=== PATIENT | male | born 1940 | race Caucasian/White ===

== ENCOUNTER 2017-06-29 15:45 | Inpatient (IN) ==
[2017-06-29] MEDS ORDERED: Nitroglycerin 1 INCH/GM PACKET TP ONE (15:55)
[2017-06-29] MEDS ORDERED: Aspirin 81 MG TAB.CHEW PO ONE (15:55)
--- NOTE | 2017-06-29 16:56 | Emergency Department Note ---
Disposition Clinical Impression: Family history of CABG, NSTEMI (non-ST elevated myocardial infarction) Chest pain Qualifiers: Chest pain type: unspecified Qualified Code(s): R07.9 - Chest pain, unspecified Afib Qualifiers: Atrial fibrillation type: paroxysmal Qualified Code(s): I48.0 - Paroxysmal atrial fibrillation Disposition: Admitted As Inpatient Condition: Serious Referrals: NONE,PCP [Primary Care Provider] - Forms: ED Satisfaction Letter Time of Disposition: 19:42 Chest Pain HPI - General Chief Complaint: ED Chest Pain Stated Complaint: CHEST PAIN Time Seen by Provider: 06/29/17 15:55 Source: patient Limitations: no limitations Vital Signs Reviewed: Yes Nursing Notes Reviewed: Yes - History of Present Illness HPI Narrative: Patient is 77-year-old male complains of chest pain that occurred this morning while patient was working on his lawn. Patient states he felt sharp has pain across her mid chest sternal. Patient has a history of 5 bypass grafts, stents in left leg and stent right shoulder. Patient went to the [facility] basic labs were drawn and patient was transferred here. Patient's states that the [facility] states that if he has CHF and is in A. fib at a recommended transfer to [facility] patient is to receive further treatment. Patient has a history of A. fib. Prior episodes of chest pain. Severity scale (1-10): 0 - Related Data Home Medications Medication Instructions Recorded Confirmed Acetaminophen [Tylenol] 500 mg PO Q6HR PRN 06/29/17 06/29/17 Albuterol Sulfate [Albuterol 2 puff IH Q6H PRN 06/29/17 06/29/17 Inhaler] Amlodipine Besylate 10 mg PO DAILY 06/29/17 06/29/17 Apixaban [Eliquis] 5 mg PO BID 06/29/17 06/29/17 Aspirin [Lo-Dose Aspirin EC] 81 mg PO DAILY 06/29/17 06/29/17 Atorvastatin [Lipitor] 40 mg PO HS 06/29/17 06/29/17 Cetirizine HCl [All Day Allergy] 10 mg PO DAILY 06/29/17 06/29/17 Cholecalciferol (D-3) [Vitamin D] 1,000 unit PO DAILY 06/29/17 06/29/17 Docusate [Colace] 100 mg PO BID PRN 06/29/17 06/29/17 Isosorbide MONOnitrate (24 HR) 30 mg PO BID 06/29/17 06/29/17 [Imdur] Lidocaine Patch [Lidoderm 5% patch] 1 each TP Q12H PRN 06/29/17 06/29/17 Melatonin [Melatin] 3 mg PO HS PRN 06/29/17 06/29/17 Methocarbamol [Robaxin] 250 mg PO QAM 06/29/17 06/29/17 Montelukast [Singulair] 10 mg PO DAILY 06/29/17 06/29/17 Multivit-Min/FA/Lycopen/Lutein 1 each PO DAILY 06/29/17 06/29/17 [Adults 50+ Multivitamin Tablet] Nitroglycerin [Nitrolingual] 1 - 2 spr SL AD PRN 06/29/17 06/29/17 Saw [place] Xtr/Zinc Picolin [Saw 2 cap PO DAILY 06/29/17 06/29/17 [place] Capsule] Sennosides [Senokot] 8.6 mg PO DAILY PRN 06/29/17 06/29/17 Sertraline [Zoloft] 100 mg PO HS 06/29/17 06/29/17 Tiotropium [Spiriva] 2 puff IH 0700 06/29/17 06/29/17 Tramadol HCl [Ultram] 25 mg PO TID PRN 06/29/17 06/29/17 Allergies Allergy/AdvReac Type Severity Reaction Status Date / Time Pneumococcal Vaccine Allergy Hives Verified 06/29/17 15:51 All systems ED: reviewed and negative except as stated. Review of Systems: As Per HPI Constitutional: Denies: fever, chills, weakness Eyes: Denies: vision change ENT ED: Denies: throat pain, congestion Cardiovascular: Reports: chest pain. Denies: palpitations Respiratory: Denies: cough, dyspnea, wheezes Gastrointestinal: Denies: abdominal pain, nausea, vomiting Genitourinary: Denies: urgency, dysuria Musculoskeletal: Denies: back pain, neck pain Integumentary: Denies: rash Neurological: Denies: headache, weakness, numbness, paresthesias Psychiatric: Denies: anxiety Endocrine: Denies: fatigue Hematological/Lymphatic: Denies: easy bleeding Chest Pain PMH - Past Medical History Medical history: Reports: other Psychiatric history: Reports: no psych history - Social History Smoking Status: Never smoker Alcohol use: Reports: none Drug use: Reports: none Physical Exam - General Limitations: no limitations General appearance: alert, in no apparent distress - Head Head exam: atraumatic, normocephalic, normal inspection - Eye Eye exam: Present: normal appearance, PERRL, EOMI - ENT ENT exam: normal exam, normal oropharynx, mucous membranes moist - Neck Neck exam: Present: normal inspection, full ROM, trachea midline - Chest Chest inspection: Present: normal inspection, symmetric chest wall rise - Respiratory Respiratory exam: Present: normal lung sounds bilaterally - Cardiovascular Cardiovascular exam: Present: regular rate, normal rhythm, normal heart sounds - Abdominal Exam Abdominal exam: Present: soft, Non-Tender. Absent: tenderness, distention, guarding, rebound, rigidity - Extremities Exam Extremities exam: Present: normal inspection, full ROM. Absent: tenderness, pedal edema - Expanded Lower Extremity Exam Hip/Pelvis exam: Present: normal inspection, full ROM - Back Exam Back exam: Present: normal inspection, full ROM. Absent: tenderness, CVA tenderness (R), CVA tenderness (L), muscle spasm - Neurological Exam Neurological exam: Present: alert, oriented X3, CN II-XII intact - Skin Skin exam: Present: warm, dry, intact, normal color Course - Reevaluation(s) Reevaluation #1: Patient seen and examined. Labs chest x-ray, CBC, BMP, troponin ordered. Patient currently not in any pain Time: 15:55 Reevaluation #2: Elevated d-dimer of 1898 high suspicious for PE. CTA chest ordered. Time: 17:44 Reevaluation #3: CTA of the chest negative for PE. Patient has elevated troponin. Patient be admitted for an STEMI, paroxysmal A. fib. Time: 18:40 - Consultations Consultation #1: Dr. Bello the hospitalist accepted patient for admission Vital Signs Temperature 97.4 F L 06/29/17 15:47 Pulse Rate 73 06/29/17 15:47 Respiratory Rate 16 06/29/17 15:47 Blood Pressure 175/94 06/29/17 15:47 O2 Sat by Pulse Oximetry 18 06/29/17 15:47 Temperature 97.4 F L 06/29/17 15:47 Pulse Rate 79 06/29/17 19:27 Respiratory Rate 18 06/29/17 19:27 Blood Pressure 156/86 06/29/17 19:27 O2 Sat by Pulse Oximetry 98 06/29/17 19:27 Oxygen Delivery Oxygen Delivery Room Air Chest Pain - MDM Narrative Medical decision making narrative: Patient was history of CABG 5 currently under assessment for pacemaker had chest pain earlier today concerning for ACS/HI, PE, aortic dissection, pneumonia. Patient's currently afebrile, has bilateral radial pulses. And chest x-ray shows no mediastinal widening. Vital signs on initial elevated blood pressure currently Patient d-dimer given positive at 1800. CT angiogram of chest was ordered. Results were negative for PE. Patient's troponin came back elevated at 0.05. Heart score 8, significantly high risk for adverse cardiac events Had discussion with patient for admission for NSTEMI, patient family accepts admission patient started on Lovenox 90 mg. Cardiac diet ordered Patient is accepted for admission by Dr. Bello the hospitalist. - Medical Records Medical records reviewed: Yes I reviewed the patient's medical records. Patient's records from the [facility] with. Labs were taken but show no abnormal labs, EKG taken in the [facility] shows A. fib with ventricular rate of 82 bpm taken at 1324 hrs. - Lab Data Lab results reviewed: Yes I reviewed the patient's lab results. Result diagrams: 06/29/17 17:21 06/29/17 17:21 Lab Results 06/29/17 06/29/17 06/29/17 Range/Units 17:21 17:21 17:21 WBC 4.5 (4.3-11.1) K/mcL RBC 4.82 (4.19-5.50) M/mcL Hgb 13.3 (12.9-16.9) g/dL Hct 41.6 (37.5-50.1) % MCV 86.3 (83.0-100.0) fL MCH 27.6 L (28.0-33.3) pg MCHC 32.0 (31.6-35.5) g/dL RDW 14.1 (11.5-14.5) % Plt Count 190 (140-400) K/mcL MPV 9.2 L (9.4-12.4) fL Immature Gran % 0.4 (0-4) % Seg Neutrophils % 70.4 % Lymphocytes % 17.3 % Monocytes % 9.4 % Eosinophils % 1.8 % Basophils % 0.7 % Neutrophils # 3.1 (1.6-8.9) K/mcL Lymphocytes # 0.8 (0.6-4.6) K/mcL Monocytes # 0.4 (0.0-1.3) K/mcL Eosinophils # 0.1 (0.0-0.6) K/mcL Basophils # 0.0 (0.0-0.2) K/mcL PT 11.8 (9.4-12.1) Seconds INR 1.1 APTT 37.2 H (26.0-36.0) Seconds D-Dimer 1898 H (0-500) ng/mLFEU Sodium 138 (136-145) mEq/L Potassium 3.9 (3.5-4.5) mEq/L Chloride 106 (98-109) mEq/L Carbon Dioxide 24 (19-29) mEq/L BUN 13 (8-26) mg/dL Creatinine 0.80 (0.72-1.25) mg/dL Est GFR ( Amer) > 60 (> 60) Est GFR (Non-Af Amer) > 60 (> 60) BUN/Creatinine Ratio 16 (6-26) Glucose 103 H (70-99) mg/dL Calculated Osmolality 286 (280-300) Calcium 9.5 (8.6-10.8) mg/dL Troponin I (0-0.03) ng/mL B-Natriuretic Peptide (0-100) pg/mL 06/29/17 06/29/17 Range/Units 17:21 17:21 WBC (4.3-11.1) K/mcL RBC (4.19-5.50) M/mcL Hgb (12.9-16.9) g/dL Hct (37.5-50.1) % MCV (83.0-100.0) fL MCH (28.0-33.3) pg MCHC (31.6-35.5) g/dL RDW (11.5-14.5) % Plt Count (140-400) K/mcL MPV (9.4-12.4) fL Immature Gran % (0-4) % Seg Neutrophils % % Lymphocytes % % Monocytes % % Eosinophils % % Basophils % % Neutrophils # (1.6-8.9) K/mcL Lymphocytes # (0.6-4.6) K/mcL Monocytes # (0.0-1.3) K/mcL Eosinophils # (0.0-0.6) K/mcL Basophils # (0.0-0.2) K/mcL PT (9.4-12.1) Seconds INR APTT (26.0-36.0) Seconds D-Dimer (0-500) ng/mLFEU Sodium (136-145) mEq/L Potassium (3.5-4.5) mEq/L Chloride (98-109) mEq/L Carbon Dioxide (19-29) mEq/L BUN (8-26) mg/dL Creatinine (0.72-1.25) mg/dL Est GFR ( Amer) (> 60) Est GFR (Non-Af Amer) (> 60) BUN/Creatinine Ratio (6-26) Glucose (70-99) mg/dL Calculated Osmolality (280-300) Calcium (8.6-10.8) mg/dL Troponin I 0.05 H* (0-0.03) ng/mL B-Natriuretic Peptide 175 H (0-100) pg/mL - Radiology Data Radiology results reviewed: Yes I reviewed the patient's radiology results. Chest X-Ray 06/29/17 15:55 IMPRESSION: Mild patchy right perihilar airspace disease. D/ / Saúl Cannon MD / Saúl Cannon MD Interpreting Provider: Saúl Cannon MD - EKG Data EKG attestation: Yes I reviewed and interpreted this EKG. EKG results narrative: EKG taken 06/29/2017 at 1557 hrs. shows A. fib at a rate of 75 bpm with no acute ST elevations in leads no widened QRS or QT prolongation. Patient has some mild ST depressions in leads 2 with T-wave inversion in aVL. Also has had some ST depression in V5 and V6. Previous EKG for comparison taken 04/12/2015 shows sinus rhythm with first-degree AV block at a rate of [address] elevations or depressions any leads, no QRS widening or QT prolongation no wellen, no Brugada Heart Score - Score History: Highly Suspicious EKG: Non Specific repolarisation Disturbance Age: Greater than 65 Risk Factors: Equal/Greater than 3 risk factor or history of atherosclerotic disease Troponin: 1-3x normal limit HEART Score Total: 8 Attestation Statement - Attestation Attestation: I examined this patient and my medical decision-making was reviewed with the Resident Physician. I agree with the documented findings, disposition and treatment plan as described except to the extent set forth below. Atrial fibrillation and possible N STEMI. No current pain. We will admit for cardiology consultation and turning of cardiac biomarkers. EKG shows atrial fibrillation at time of admission.
[2017-06-29 17:29] LABS: Basophils % 0.7 %; Eosinophils # 0.1 K/mcL (0.0-0.6); Eosinophils % 1.8 %; Hematocrit 41.6 % (37.5-50.1); Hemoglobin 13.3 g/dL (12.9-16.9); Immature Granulocytes % 0.4 % (0-4); Lymphocytes # 0.8 K/mcL (0.6-4.6); Lymphocytes % 17.3 %; Mean Corpuscular Hemoglobin 27.6 pg (28.0-33.3); Mean Corpuscular Volume 86.3 fL (83.0-100.0); Mean Platelet Volume 9.2 fL (9.4-12.4); Monocytes # 0.4 K/mcL (0.0-1.3); Monocytes % 9.4 %; Neutrophils # 3.1 K/mcL (1.6-8.9); Platelet Count 190 K/mcL (140-400); Red Blood Count 4.82 M/mcL (4.19-5.50); Red Cell Distribution Width 14.1 % (11.5-14.5); Segmented Neutrophils % 70.4 %
[2017-06-29 17:33] LABS: INR 1.1; Prothrombin Time 11.8 Seconds (9.4-12.1)
[2017-06-29 17:36] LABS: Activated Partial Thrombo Time 37.2 Seconds (26.0-36.0)
[2017-06-29 17:42] LABS: BUN/Creatinine Ratio 16 (6-26); Blood Urea Nitrogen 13 mg/dL (8-26); Calcium 9.5 mg/dL (8.6-10.8); Carbon Dioxide 24 mEq/L (19-29); Chloride 106 mEq/L (98-109); Glucose 103 mg/dL (70-99); Osmolality,Calculated 286 (280-300); Potassium 3.9 mEq/L (3.5-4.5); Sodium 138 mEq/L (136-145); eGFR For African Americans > 60 (> 60); eGFR For Non-African Americans > 60 (> 60)
[2017-06-29] MEDS ORDERED: *HR* Enoxaparin 100 MG/ML SYRINGE SQ STA (18:50)
[2017-06-29] MEDS ORDERED: *HR* HYDROcodone/Acet 5/325 mg TABLET PO ONE (19:53)
[2017-06-29] MEDS ORDERED: Ondansetron 4 MG/2 ML VIAL IVP PRN (21:36)
[2017-06-29] MEDS ORDERED: Acetaminophen 325 MG TABLET PO PRN (21:36)
[2017-06-29] MEDS ORDERED: Naloxone 0.4 MG/ML INJ IVP PRN (21:36)
[2017-06-29] MEDS ORDERED: *HR* Morphine 2 MG/ML SYRINGE IVP PRN (21:38)
[2017-06-29] MEDS ORDERED: Nitroglycerin 0.4 MG TAB.SUBL SL PRN (21:38)
[2017-06-29] MEDS ORDERED: Sennosides 8.6 MG TABLET PO PRN (21:42)
--- NOTE | 2017-06-29 21:53 | Internal Med History&Physical ---
<Dana Mitchell - Last Filed: 06/29/17 22:40> Date of Encounter: 06/29/17 Time of Encounter: 21:46 Assessment and Plan (1) Chest pain Current visit: Yes Status: Acute She has been experiencing increasing shortness of breath as well as chest pain on exertion relieved with rest. Distant history of A. fib hypertension and previous 5 vessel bypass graft. Chest x-ray CT concerning for pulmonary edema BNP was 175 troponin was 0.05. We will continue to trend troponin 2 Given Lovenox in ED hold patient's Eliquis for now 3 continue with aspirin 4 nitrates and oxygen 5 we will obtain cardiac echo 6 give dose of Lasix and continue daily 7 continue with statin-check lipids in a.m. 8 we will consult cardiology 9 continue with cardiac monitoring Qualifiers: Chest pain type: unspecified Qualified Code(s): R07.9 - Chest pain, unspecified (2) Afib Current visit: Yes Status: Acute 1 presently in atrial fibrillation with a controlled rate we will hold Eliquis for now given Lovenox- patient states he is supposed to go for pacemaker placement at [facility] Qualifiers: Atrial fibrillation type: chronic Qualified Code(s): I48.2 - Chronic atrial fibrillation (3) COPD (chronic obstructive pulmonary disease) Current visit: No Status: Chronic 1 presently appears stable no wheezing noted. We will continue with bronchodilators Singulair as well as oxygen as needed Qualifiers: COPD type: unspecified COPD Qualified Code(s): J44.9 - Chronic obstructive pulmonary disease, unspecified (4) DVT prophylaxis Current visit: Yes Status: Acute Internal Medicine - H&P: HPI Chief complaint: SOB/CP Admitted From: Emergency Dept Plans for Post Hospital Care: Home History of present illness: Mr. Villa is a 77 year old male past medical history of COPD coronary artery disease with 5 bypass graft in 1987 stent right shoulder and left leg atrial fibrillation on Eliquis. According to patient he was experiencing chest achiness the top of his chest bilaterally radiating to sternum. He described it as a achiness experiencing shortness of breath symptoms are aggravated with exertion and were relieved with rest. The pain resolved on it own however he continued to experience chest pain off and on all morning. He went to the [facility] urgent care to be evaluated. There chest x-ray showed cardiomegaly with mild pulmonary DNA and a small right pleural effusion could not to CHF. He was transferred to this facility for further workup and evaluation. Troponin on arrival is 0.05 BMP was 175 d-dimer O 1898 CTA was obtained which showed no PE. He was given aspirin and Lovenox nitroglycerin topically. He has been admitted for further workup evaluation. Present patient is not experiencing any chest pain or shortness of breath. His lung sounds are clear heart sounds are irregular with S1-S2 no murmurs clicks count was noted abdomen soft nontender no pedal edema at this time. However patient does admit to having swelling over the past 3 weeks. As well as a 6 pound weight gain over 2 weeks.. He states he is supposed to go into weeks to [facility] have a pacemaker place Denies any fevers chills nausea vomiting diarrhea abdominal pain. He is hemodynamically stable at this time I reviewed his case with Dr. Lockhart who agrees with plan. Past Med Surg Social Fam HX - Past Medical History Medical history: other Psychiatric history: no psych history - Social History Smoking Status: Never smoker Smokeless Tobacco Status: No Alcohol use: none Drug use: none - Family History Father Living Status: Cause of : [place] Mother Living Status: Hx Family Cardiac Disorders: Yes (CHF) Internal Medicine - H&P: Meds Acetaminophen [Tylenol] 500 mg PO Q6HR PRN 06/29/17 [History] Albuterol Sulfate [Albuterol Inhaler] 2 puff IH Q6H PRN 06/29/17 [History] Amlodipine Besylate 10 mg PO DAILY 06/29/17 [History] Apixaban [Eliquis] 5 mg PO BID 06/29/17 [History] Aspirin [Lo-Dose Aspirin EC] 81 mg PO DAILY 06/29/17 [History] Atorvastatin [Lipitor] 40 mg PO HS 06/29/17 [History] Cetirizine HCl [All Day Allergy] 10 mg PO DAILY 06/29/17 [History] Cholecalciferol (D-3) [Vitamin D] 1,000 unit PO DAILY 06/29/17 [History] Docusate [Colace] 100 mg PO BID PRN 06/29/17 [History] Isosorbide MONOnitrate (24 HR) [Imdur] 30 mg PO BID 06/29/17 [History] Lidocaine Patch [Lidoderm 5% patch] 1 each TP Q12H PRN 06/29/17 [History] Melatonin [Melatin] 3 mg PO HS PRN 06/29/17 [History] Methocarbamol [Robaxin] 250 mg PO QAM 06/29/17 [History] Montelukast [Singulair] 10 mg PO DAILY 06/29/17 [History] Multivit-Min/FA/Lycopen/Lutein [Adults 50+ Multivitamin Tablet] 1 each PO DAILY 06/29/17 [History] Nitroglycerin [Nitrolingual] 1 - 2 spr SL AD PRN 06/29/17 [History] [place] Xtr/Zinc Picolin [[place] Capsule] 2 cap PO DAILY 06/29/17 [ History] Sennosides [Senokot] 8.6 mg PO DAILY PRN 06/29/17 [History] Sertraline [Zoloft] 100 mg PO HS 06/29/17 [History] Tiotropium [Spiriva] 2 puff IH 0700 06/29/17 [History] Tramadol HCl [Ultram] 25 mg PO TID PRN 06/29/17 [History] 3 Allergy/AdvReac Type Severity Reaction Status Date / Time Pneumococcal Vaccine Allergy Hives Verified 06/29/17 15:51 All Systems PM: A 10-system review of systems was performed and is negative for pertinent findings except as documented above in the HPI. - Constitutional Constitutional: fatigue - EENT Eyes: no change in vision, no discharge, no pain, no photophobia - Cardiovascular Cardiovascular ROS IM: chest pain, dyspnea, dyspnea on exertion, edema, no diaphoresis, no lightheadedness, no palpitations, no syncope - Respiratory Respiratory: dyspnea on exertion - Gastrointestinal Gastrointestinal: no abdominal pain, no diarrhea, no hematemesis, no hematochezia, no melena, no nausea, no vomiting - Musculoskeletal Musculoskeletal ROS IM: no numbness, no tingling - Integumentary Integumentary IM: no rash, no unusual bruising - Neurological Neurological ROS: no confusion, no convulsions, no focal weakness, no numbness, no tingling, no tremor(s) - Hematologic/Lymphatic Hematologic/Lymphatic: no easy bruising - Constitutional Vitals: Temp Pulse Resp BP Pulse Ox 98.3 F 78 12 142/79 95 06/29/17 21:03 06/29/17 21:03 06/29/17 21:03 06/29/17 21:03 06/29/17 21:03 General appearance: Present: A&O X 3, answers questions appropriately - Head Head exam: Present: atraumatic, normocephalic - Eye Eye exam: Present: PERRL, conjuntiva pink, sclera anicteric Pupils: Present: PERRL - Neck Neck exam general surgery: Present: supple, trachea midline. Absent: lymphadenopathy - Respiratory Respiratory exam: Present: CTAB. Absent: accessory muscle use, rales, rhonchi, wheezes - Cardiovascular Cardiovascular exam: Present: irregular rhythm, +S1, +S2. Absent: diastolic murmur, gallop, rubs, systolic murmur - GI/Abdominal GI/Abdominal exam: Present: normal bowel sounds, soft, no peritoneal signs. Absent: distended, tenderness - Extremities Exam Extremities exam: Present: warm, radial pulses palpable and symmetrical. Absent : calf tenderness, cyanotic, pedal edema - Neurological Exam Neurological exam: Present: CN II-XII intact, oriented X3, no focal deficits. Absent: pronater drift, facial droop, speech deficit - Skin Skin exam: Present: dry, intact Internal Med - H&P Results - Labs CBC & Chem 7: 06/29/17 17:21 06/29/17 17:21 - EKG Data EKG comments: 06/29/17 21:56 Trabeculation with controlled rate no ST-T wave abnormalities noted - Diagnostic Studies Other Images Additional comments: Chest X-Ray 06/29/17 15:55 IMPRESSION: Mild patchy right perihilar airspace disease. D/ / Saúl Cannon MD / Saúl Cannon MD Interpreting Provider: Saúl Cannon MD Chest CTA 06/29/17 17:43 IMPRESSION: 1. No CT evidence of a pulmonary embolism. 2. Atherosclerotic disease of the thoracic aorta, without evidence of aneurysm or dissection. 3. Small bilateral pleural effusions with mild bibasilar airspace disease, most likely atelectasis, less likely pneumonia. 4. Bibasilar predominant interstitial pulmonary edema. 5. Clustered nodules within the anterior basal segment of the right lower lobe, most likely infectious or inflammatory bronchiolitis. There is an additional 7.5 mm new subpleural nodule within the right lower lobe, most likely benign. However, follow-up of this nodule is as advised below. 6. Chronic partial left upper lobe collapse and parenchymal scar along the medial aspect of the left upper lobe. 7. Stable mild bilateral hilar lymphadenopathy, unchanged from 03/2015, and most likely benign given its stability. 8. 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 RECOMMENDATIONS: Fleischner Society guidelines for follow-up and management of incidentally detected pulmonary nodules: Multiple Solid Nodules: Nodule size equals 6-8 mm In a low-risk patient, CT at 3-6 months, then consider CT at 18-24 months. In a high-risk patient, CT at 3-6 months, then CT at 18-24 months. - Low risk patients include individuals with minimal or absent history of smoking and other known risk factors. - High risk patients include individuals with a history or smoking or known risk factors. Radiology 2017 http://pubs.rsna.org/doi/full/10.1148/radiol.[email or web address] D/ / 06/29/2017 18:44:41 Amol Minaya MD / Emy Rojas Interpreting Provider: Amol Minaya MD <AceZulmamohsen - Last Filed: 06/30/17 01:09> Date of Encounter: 06/30/17 Internal Medicine - H&P: HPI History of present illness: Mr. Villa is a 77 year old male All Systems PM: A 10-system review of systems was performed and is negative for pertinent findings except as documented above in the HPI. - Constitutional Vitals: Temp Pulse Resp BP Pulse Ox 98.1 F 72 12 110/61 94 06/29/17 23:47 06/29/17 23:47 06/29/17 23:47 06/29/17 23:47 06/29/17 23:47 Internal Med - H&P Results - Labs CBC & Chem 7: 06/29/17 17:21 06/29/17 17:21 Labs: Cardiac Enzymes 06/29/17 Range/Units 22:57 Troponin I 0.02 (0-0.03) ng/mL - Attending Attestation I have seen and examined this patient in dependently. I have discussed with WATER OPERATOR Ms. Mitchell regarding the management plan. I have reviewed and agree with the documentation. Patient has a history of CAD S/P CABG. Had a chest pain this morning, mild elevated troponin. Need to rule out ACS. Patient also was found cardiac pause recently through Holter monitor at outpatient. He was scheduled for PPM in June. Will continue cardiac monitoring, check 3 sets of troponin, check echocardiogram in a.m., and consult cardiology. Patient is pain-free when I saw him.
[2017-06-29] MEDS ORDERED: Furosemide 20 MG/2 ML VIAL IVP ONE (22:36)
[2017-06-30 05:28] LABS: Basophils % 0.4 %; Eosinophils # 0.1 K/mcL (0.0-0.6); Hematocrit 39.7 % (37.5-50.1); Hemoglobin 12.9 g/dL (12.9-16.9); Immature Granulocytes % 0.4 % (0-4); Lymphocytes # 1.2 K/mcL (0.6-4.6); Lymphocytes % 26.3 %; Mean Corpuscular HGB Conc 32.5 g/dL (31.6-35.5); Mean Corpuscular Hemoglobin 28.2 pg (28.0-33.3); Mean Corpuscular Volume 86.7 fL (83.0-100.0); Mean Platelet Volume 9.7 fL (9.4-12.4); Monocytes # 0.5 K/mcL (0.0-1.3); Monocytes % 10.7 %; Neutrophils # 2.7 K/mcL (1.6-8.9); Platelet Count 180 K/mcL (140-400); Red Blood Count 4.58 M/mcL (4.19-5.50); Red Cell Distribution Width 14.4 % (11.5-14.5); Segmented Neutrophils % 60.2 %
[2017-06-30 05:41] LABS: BUN/Creatinine Ratio 19 (6-26); Blood Urea Nitrogen 17 mg/dL (8-26); Calcium 9.3 mg/dL (8.6-10.8); Carbon Dioxide 25 mEq/L (19-29); Chloride 108 mEq/L (98-109); Cholesterol 111 mg/dL (< 200); Glucose 111 mg/dL (70-99); HDL Cholesterol 22 mg/dL (40-59); LDL Cholesterol,Calculated 57 mg/dL (0-99); Magnesium 1.6 mg/dL (1.6-2.6); Osmolality,Calculated 298 (280-300); Potassium 3.9 mEq/L (3.5-4.5); Sodium 143 mEq/L (136-145); Triglycerides 158 mg/dL (< 150); eGFR For African Americans > 60 (> 60); eGFR For Non-African Americans > 60 (> 60)
[2017-06-30] MEDS ORDERED: Enoxaparin Weight Dosing SQ SCH (06:00)
[2017-06-30 06:14] LABS: Thyroid Stimulating Hormone 3.657 mcIU/mL (0.350-4.840)
[2017-06-30] MEDS ORDERED: Aspirin 81 MG TAB.CHEW PO SCH (09:00)
[2017-06-30] MEDS ORDERED: Furosemide 20 MG/2 ML VIAL IVP SCH (09:00)
[2017-06-30] MEDS: APIXABAN 5 MG TABLET PO SCH ×2 (09:49→20:08)
[2017-06-30] MEDS: Aspirin Enteric Coated 81 MG Tablet PO SCH (09:49)
[2017-06-30] MEDS: Isosorbide MONOnitrate (24 HR) 30 MG TAB.ER.24H PO SCH ×2 (09:49→20:08)
[2017-06-30] MEDS: amLODIPine 5 MG TABLET PO SCH (09:50)
--- NOTE | 2017-06-30 10:51 | Cardiology Consult Note ---
Date of Encounter: 06/30/17 Time of Encounter: 10:48 Assessment and Plan (1) CAD (coronary artery disease) Current Visit: Yes Status: Acute Known CAD, S/P CABG. Reports recent stress test is negative. Qualifiers: Coronary Disease-Associated Artery/Lesion type: [place] artery [place] vs. transplanted heart: [place] heart Associated angina: with stable angina Qualified Code(s): I25.118 - Atherosclerotic heart disease of [place] coronary artery with other forms of angina pectoris (2) Afib Current Visit: Yes Status: Acute At this point appears to be persistent/ permanent. Sotalol recently stopped. Pacemaker planned. Continure current mgmt. Qualifiers: Atrial fibrillation type: persistent Qualified Code(s): I48.1 - Persistent atrial fibrillation (3) CHF exacerbation Current Visit: Yes Status: Acute Appears to have diastolic CHF, would recommend diuresis. Qualifiers: Congestive heart failure type: diastolic Qualified Code(s): I50.33 - Acute on chronic diastolic (congestive) heart failure Discussion w patient/family: The assessment and plan as outlined above was discussed with the patient and/or family members who expressed understanding and agreement. All questions were answered. Thank you for involving us in the care of your patient. Please call with any questions. History of Present Illness Consult date: 06/30/17 Requesting physician: Melina Polanco Consult reason: Chest pain, CHF Chief complaint: SOB, swelling History of present illness: Mr. iVlla is a 77 year old male with history of CAD, S/P CABG, AF which appears to be persistent who presents with swelling, SOB and chest pain. Of note he was recently seen at [facility] and scheduled for pacemaker in two weeks. Past Med Surg Social Fam HX - Past Medical History Medical history: other Psychiatric history: no psych history - Past Surgical History Surgical History: appendectomy, cancer surgery, coronary bypass (CABG) - Social History Smoking Status: Never smoker Smokeless Tobacco Status: No Alcohol use: none Drug use: none - Family History Father Living Status: Cause of : [place] Mother Living Status: Hx Family Cardiac Disorders: Yes (CHF) Medications and Allergies Acetaminophen [Tylenol] 500 mg PO Q6HR PRN 06/29/17 [History] Albuterol Sulfate [Albuterol Inhaler] 2 puff IH Q6H PRN 06/29/17 [History] Amlodipine Besylate 10 mg PO DAILY 06/29/17 [History] Apixaban [Eliquis] 5 mg PO BID 06/29/17 [History] Aspirin [Lo-Dose Aspirin EC] 81 mg PO DAILY 06/29/17 [History] Atorvastatin [Lipitor] 40 mg PO HS 06/29/17 [History] Cetirizine HCl [All Day Allergy] 10 mg PO DAILY 06/29/17 [History] Cholecalciferol (D-3) [Vitamin D] 1,000 unit PO DAILY 06/29/17 [History] Docusate [Colace] 100 mg PO BID PRN 06/29/17 [History] Isosorbide MONOnitrate (24 HR) [Imdur] 30 mg PO BID 06/29/17 [History] Lidocaine Patch [Lidoderm 5% patch] 1 each TP Q12H PRN 06/29/17 [History] Melatonin [Melatin] 3 mg PO HS PRN 06/29/17 [History] Methocarbamol [Robaxin] 250 mg PO QAM 06/29/17 [History] Montelukast [Singulair] 10 mg PO DAILY 06/29/17 [History] Multivit-Min/FA/Lycopen/Lutein [Adults 50+ Multivitamin Tablet] 1 each PO DAILY 06/29/17 [History] Nitroglycerin [Nitrolingual] 1 - 2 spr SL AD PRN 06/29/17 [History] Saw [place] Xtr/Zinc Picolin [Saw [place] Capsule] 2 cap PO DAILY 06/29/17 [ History] Sennosides [Senokot] 8.6 mg PO DAILY PRN 06/29/17 [History] Sertraline [Zoloft] 100 mg PO HS 06/29/17 [History] Tiotropium [Spiriva] 2 puff IH 0700 06/29/17 [History] Tramadol HCl [Ultram] 25 mg PO TID PRN 06/29/17 [History] 3 Allergy/AdvReac Type Severity Reaction Status Date / Time Pneumococcal Vaccine Allergy Hives Verified 06/29/17 15:51 All Systems Review: A 10-system review of systems was performed and is negative for pertinent findings except as documented above in the HPI. Physical Examination Vital Signs, Last 4 Hours Temp Pulse Resp BP Pulse Ox 06/30/17 08:09 98.2 F 74 14 144/70 97 General: Conversant, No Apparent Distress Neck: No JVD, Normal carotid pulses Cardiac: Other (Irregular) Lungs: Other (decreased at bases) Neuro: Alert and responsive, No focal deficits noted Abdomen: Soft, Non-Tender Skin: No rashes noted on visualized skin Musculoskeletal: No Chest Wall Tenderness Results 06/30/17 05:01 06/30/17 05:01 Lab Results 06/29/17 06/30/17 06/30/17 22:57 05:01 05:01 WBC 4.5 Hgb 12.9 Hct 39.7 Plt Count 180 Sodium 143 Potassium 3.9 Chloride 108 Carbon Dioxide 25 BUN 17 Creatinine 0.91 Glucose 111 H Calcium 9.3 Magnesium 1.6 Troponin I 0.02 TSH 3.657 06/30/17 05:01 WBC Hgb Hct Plt Count Sodium Potassium Chloride Carbon Dioxide BUN Creatinine Glucose Calcium Magnesium Troponin I 0.04 H* TSH Consult Discharge Plan - Plan [facility]errals: [facility] [Primary Care Provider] -
[2017-06-30] MEDS: Tiotropium 18 MCG inhalation IH SCH (11:08)
[2017-06-30] MEDS: Furosemide 40 MG/4 ML VIAL IVP SCH ×2 (12:18→12:23)
[2017-06-30] MEDS ORDERED: Saline Nasal Spray 44 ML BOTTLE NS PRN (16:31)
[2017-06-30] MEDS: *HR* HYDROcodone/Acet 5/325 mg TABLET PO PRN (20:08)
--- NOTE | 2017-06-30 23:31 | Internal Med Progress Note ---
Date of Encounter: 06/30/17 Time of Encounter: 14:40 - Assessment and plan (1) Afib Current Visit: Yes Status: Acute Assessment and plan: Mr. Villa is a 77 year old male with history of CAD, S/P CABG, AF which appears to be persistent who presents with swelling, SOB and chest pain. Echocardiogram showed normal EF and was in afib while study was done. Currently on Lovenox and rate controlled. Qualifiers: Atrial fibrillation type: persistent Qualified Code(s): I48.1 - Persistent atrial fibrillation (2) CAD (coronary artery disease) Current Visit: Yes Status: Acute Qualifiers: Coronary Disease-Associated Artery/Lesion type: [place] artery [place] vs. transplanted heart: [place] heart Associated angina: with stable angina Qualified Code(s): I25.118 - Atherosclerotic heart disease of [place] coronary artery with other forms of angina pectoris (3) CHF exacerbation Current Visit: Yes Status: Acute Qualifiers: Congestive heart failure type: diastolic Qualified Code(s): I50.33 - Acute on chronic diastolic (congestive) heart failure (4) Chest pain Current Visit: Yes Status: Acute Qualifiers: Chest pain type: unspecified Qualified Code(s): R07.9 - Chest pain, unspecified (5) DVT prophylaxis Current Visit: Yes Status: Acute - Subjective Interval history: No acute events. No episodes of chest pain, SOB, dizziness, N/V, diaphoresis. - Constitutional Vitals: Temp Pulse Resp BP Pulse Ox 98.0 F 80 16 122/58 96 06/30/17 22:56 06/30/17 22:56 06/30/17 22:56 06/30/17 22:56 06/30/17 22:56 General appearance: Present: A&O X 3, answers questions appropriately - Cardiovascular Cardiovascular exam: Present: clicks, irregular rhythm, +S1, +S2, tachycardia - Extremities Exam Extremities exam: Present: calf tenderness, pedal edema. Absent: cyanotic, joint swelling Internal Medicine: Result - Labs CBC & Chem 7: 06/30/17 05:01 06/30/17 05:01 Labs: Short CBC 06/30/17 Range/Units 05:01 WBC 4.5 (4.3-11.1) K/mcL Hgb 12.9 (12.9-16.9) g/dL Hct 39.7 (37.5-50.1) % Plt Count 180 (140-400) K/mcL Neutrophils # 2.7 (1.6-8.9) K/mcL BMP 06/30/17 05:01 Sodium 143 Potassium 3.9 Chloride 108 Carbon Dioxide 25 BUN 17 Creatinine 0.91 Glucose 111 H Calcium 9.3 Cardiac Enzymes 06/30/17 Range/Units 05:01 Troponin I 0.04 H* (0-0.03) ng/mL - ABG Interpretation ABG results: PT/INR, D-dimer PT 11.8 Seconds (9.4-12.1) 06/29/17 17:21 D-Dimer 1898 ng/mLFEU (0-500) H 06/29/17 17:21 Consult Discharge Plan - Plan [facility]errals: [facility] [Primary Care Provider] -
[2017-07-01 04:07] LABS: Basophils % 0.5 %; Eosinophils # 0.1 K/mcL (0.0-0.6); Hematocrit 36.8 % (37.5-50.1); Hemoglobin 11.6 g/dL (12.9-16.9); Immature Granulocytes % 0.5 % (0-4); Lymphocytes # 0.8 K/mcL (0.6-4.6); Mean Corpuscular HGB Conc 31.5 g/dL (31.6-35.5); Mean Corpuscular Hemoglobin 27.4 pg (28.0-33.3); Mean Platelet Volume 9.5 fL (9.4-12.4); Monocytes # 0.5 K/mcL (0.0-1.3); Monocytes % 11.1 %; Platelet Count 171 K/mcL (140-400); Red Blood Count 4.23 M/mcL (4.19-5.50); Red Cell Distribution Width 14.4 % (11.5-14.5); Segmented Neutrophils % 67.9 %
[2017-07-01 04:19] LABS: BUN/Creatinine Ratio 23 (6-26); Blood Urea Nitrogen 22 mg/dL (8-26); Calcium 9.2 mg/dL (8.6-10.8); Carbon Dioxide 27 mEq/L (19-29); Chloride 105 mEq/L (98-109); Glucose 120 mg/dL (70-99); Osmolality,Calculated 295 (280-300); Potassium 3.9 mEq/L (3.5-4.5); Sodium 140 mEq/L (136-145); eGFR For African Americans > 60 (> 60); eGFR For Non-African Americans > 60 (> 60)
[2017-07-01] MEDS: Isosorbide MONOnitrate (24 HR) 30 MG TAB.ER.24H PO SCH (09:03)
[2017-07-01] MEDS: APIXABAN 5 MG TABLET PO SCH (09:04)
[2017-07-01] MEDS: amLODIPine 5 MG TABLET PO SCH (09:04)
[2017-07-01] MEDS: Aspirin Enteric Coated 81 MG Tablet PO SCH (09:04)
[2017-07-01] MEDS ORDERED: Furosemide 40 MG/4 ML VIAL IVP SCH (09:30)
[2017-07-01] MEDS: Tiotropium 18 MCG inhalation IH SCH (11:13)
[2017-07-01 18:39] VITALS: BP 141/65
--- NOTE | 2017-07-01 18:39 | Discharge Summary ---
Date of Encounter: 07/01/17 Time of Encounter: 18:34 - Discharge Diagnosis (1) CHF exacerbation Priority: Primary Status: Chronic Qualifiers: Congestive heart failure type: diastolic Qualified Code(s): I50.33 - Acute on chronic diastolic (congestive) heart failure (2) Chest pain Priority: Secondary Status: Resolved Qualifiers: Chest pain type: unspecified Qualified Code(s): R07.9 - Chest pain, unspecified (3) Afib Priority: Secondary Status: Chronic Qualifiers: Atrial fibrillation type: persistent Qualified Code(s): I48.1 - Persistent atrial fibrillation (4) CAD (coronary artery disease) Priority: Secondary Status: Chronic Qualifiers: Coronary Disease-Associated Artery/Lesion type: [place] artery [place] vs. transplanted heart: [place] heart Associated angina: with stable angina Qualified Code(s): I25.118 - Atherosclerotic heart disease of [place] coronary artery with other forms of angina pectoris - Discharge Medications Home Medications: Acetaminophen [Tylenol] 500 mg PO Q6HR PRN 06/29/17 [History] Albuterol Sulfate [Albuterol Inhaler] 2 puff IH Q6H PRN 06/29/17 [History] Amlodipine Besylate 10 mg PO DAILY 06/29/17 [History] Apixaban [Eliquis] 5 mg PO BID 06/29/17 [History] Aspirin [Lo-Dose Aspirin EC] 81 mg PO DAILY 06/29/17 [History] Atorvastatin [Lipitor] 40 mg PO HS 06/29/17 [History] Cetirizine HCl [All Day Allergy] 10 mg PO DAILY 06/29/17 [History] Cholecalciferol (D-3) [Vitamin D] 1,000 unit PO DAILY 06/29/17 [History] Docusate [Colace] 100 mg PO BID PRN 06/29/17 [History] Isosorbide MONOnitrate (24 HR) [Imdur] 30 mg PO BID 06/29/17 [History] Lidocaine Patch [Lidoderm 5% patch] 1 each TP Q12H PRN 06/29/17 [History] Melatonin [Melatin] 3 mg PO HS PRN 06/29/17 [History] Methocarbamol [Robaxin] 250 mg PO QAM 06/29/17 [History] Montelukast [Singulair] 10 mg PO DAILY 06/29/17 [History] Multivit-Min/FA/Lycopen/Lutein [Adults 50+ Multivitamin Tablet] 1 each PO DAILY 06/29/17 [History] Nitroglycerin [Nitrolingual] 1 - 2 spr SL AD PRN 06/29/17 [History] Saw [place] Xtr/Zinc Picolin [Saw [place] Capsule] 2 cap PO DAILY 06/29/17 [ History] Sennosides [Senokot] 8.6 mg PO DAILY PRN 06/29/17 [History] Sertraline [Zoloft] 100 mg PO HS 06/29/17 [History] Tiotropium [Spiriva] 2 puff IH 0700 06/29/17 [History] Tramadol HCl [Ultram] 25 mg PO TID PRN 06/29/17 [History] Furosemide [Lasix] 20 mg PO DAILY PRN #3 tablet 07/01/17 [Rx] Allergies/Adverse Reactions: 3 Allergy/AdvReac Type Severity Reaction Status Date / Time Pneumococcal Vaccine Allergy Hives Verified 06/29/17 15:51 Procedures/tests Complete & Pending: Procedures Performed prior 72 hours Category Date Time Status EV echocardiogram Routine Y 06/30/17 09:00 Completed Date of admission: 06/29/17 20:20 [facility] Consults: 06/29/17 21:38 Consult to Cardiac Rehabilitation-Phase1 [CONS] Routine Comment: Reason for Consult: AMI Call Completed: Yes Consult to Cardiology [CONS] Routine Comment: Consulting Provider: [facility] Reason for Consult: Nstemi, pt reported pause on recent Holter as outpatient , planed for PPM by his boat buffer plastic. Time Notified: 21:40 Call Completed: No Consult to Nurse Navigator [CONS] Routine Comment: Discharging clinician: Uyen Chen - Patient Status Disposition: Home, Self-Care Condition: Serious Functional capacity at discharge: independent ambulation Overall status at discharge: patient is back to baseline - Discharge Instructions Follow [facility] With: [facility] [Primary Care Provider] - - Diet and Activity Activity: increase activity as tolerated Diet: low salt diet Hospital course: Mr. Villa is a 77 year old male - Time Spent with Patient Total time spent providing and/or coordinating discharge services: - Constitutional Vitals: Temp Pulse Resp BP Pulse Ox 98.2 F 86 16 151/76 94 07/01/17 16:04 07/01/17 16:04 07/01/17 16:24 07/01/17 16:04 07/01/17 16:24 General appearance: Present: A&O X 3, answers questions appropriately
[2017-07-01] MEDS: *HR* HYDROcodone/Acet 5/325 mg TABLET PO PRN (19:12)
--- NOTE | 2017-07-03 08:15 | Electrocardiograph Report ---
[place] [id number] Test Date: 2017-06-29 Pat Name: Baltazar Villa Department: 102 Room: 3B34 Gender: M [employer]: [facility] : 1940 Requested By: Salvatore Armas Order Number: [id number] Reading MD: Екатерина Simmons Measurements Intervals [place] Rate: 75 P: [place]: 0 QRS: 77 QRSD: 100 T: 91 QT: 363 QTc: 392 Interpretive Statements ATRIAL FIBRILLATION NONSPECIFIC ST & T-WAVE ABNORMALITY ABNORMAL RHYTHM ECG Electronically Signed On 07-02-2017 11:05:39 EDT by Екатерина Simmons
== END 2017-07-01 19:24 | disposition home or self-care (01) | DRG 292 ==
LOC: EMEROO 15:45 → 3BNU 20:20
PROVIDERS: ADMIT Internal Medicine; ATTEND Registered Nurse